=== PATIENT | male | born 1990 | race Caucasian/White ===

== ENCOUNTER 2016-10-17 10:56 | Emergency (ER) | payer OTHER ==
[~2016-10-17] VITALS: Ht 165.1 cm; Wt 70.7 kg
[2016-10-17] MEDS ORDERED: OXYcodone/APAP 5/325MG TABLET PO ONE (11:30)
[2016-10-17] MEDS ORDERED: OXYcodone/APAP 5/325MG TABLET ONE (11:51)
[2016-10-17 12:47] VITALS: BP 128/72
== END 2016-10-17 12:48 | disposition home or self-care (01) ==
LOC: ED 12:42
DX: N50.811 Right testicular pain (principal); R10.30 Lower abdominal pain, unspecified; Z98.52 Vasectomy status
CPT/HCPCS: 76870; 81003; 87491; 87591